=== PATIENT | female | born 1965 | race African-American/Black ===

== ENCOUNTER 2020-05-16 16:56 | Emergency (ER) | payer OTHER ==
[~2020-05-16] VITALS: Ht 172.7 cm; Wt 124.5 kg
[~2020-05-16 16:56] MED LIST: TYLETAB14 PO
--- OUTSIDE RECORDS SUMMARY | 2020-05-16 17:01 | CCD ---
Author Author [facility] Organization [facility] Address Unknown Phone Unavailable Support Name Relationship Address Phone [facility] Next Of Kin [phone] [place] [address] [facility] Next Of Kin [phone] [place] [address] LEOBARDO HERNANDO NASSAR Next Of Kin [address] [place] [address] FLIPHERNANDO HOYOS Next Of Kin Unknown Re-disclosure Warning The records that you are about to access may contain information from federally-assisted alcohol or drug abuse programs. If such information is present, then the following federally mandated warning applies: This information has been disclosed to you from records protected by federal confidentiality rules (42 CFR part 2). The federal rules prohibit you from making any further disclosure of this information unless further disclosure is expressly permitted by the written consent of the person to whom it pertains or as otherwise permitted by 42 CFR part 2. A general authorization for the release of medical or other information is NOT sufficient for this purpose. The Federal rules restrict any use of the information to criminally investigate or prosecute any alcohol or drug abuse patient.The records that you are about to access may contain highly sensitive health information, the redisclosure of which is protected by Article 27-F of the [facility] Public Health law. If you continue you may have access to information: Regarding HIV / AIDS; Provided by facilities licensed or operated by the [facility] Office of Mental Health; or Provided by the [facility] Office for People With Developmental Disabilities. If such information is present, then the following [facility] mandated warning applies: This information has been disclosed to you from confidential records which are protected by state law. State law prohibits you from making any further disclosure of this information without the specific written consent of the person to whom it pertains, or as otherwise permitted by law. Any unauthorized further disclosure in violation of state law may result in a fine or long-term sentence or both. A general authorization for the release of medical or other information is NOT sufficient authorization for further disc losure. Family History Family Member Name Family Member Gender Family Member Status Date o f Status Description Data Source(s) Unknown Unknown Problem [facility] ([facility]) Insurance Providers Payer name Policy type / Coverage type Policy ID Covered green party ID Covered green party's relationship to cabrales Policy Cabrales Plan Information [facility] [id number] [facility] [id number] [place] [id number] Self [id number] [facility] [id number] [facility] [id number] N REGIONAL CLAIMS SOHA-O/P [id number] 01 [id number] Results ID Date Data Source [id number] 02/02/2020 12:00:00 AM EST [facility] Name Value Range Interpretation Code Description Data Amberly rce(s) Supporting Document(s) SARS coronavirus 2 RNA [Presence] in Res piratory specimen by YANCY with probe detection [facility] This lab was ordered by Estuardo Boone and reported by [facility]. Procedure
--- NOTE | 2020-05-16 18:04 | REP ---
INDICATION: CHEST PAIN. COMPARISON: None. TECHNIQUE: AP portable upright chest FINDINGS: Lungs are well inflated. CP angle sharply defined without effusion. No lateral pleural thickening, apical scarring or pneumothorax. I see no infiltrate or atelectasis. The heart, mediastinal and hilar contours are normal for portable technique. The aorta and airway intact. Bones grossly intact. No free air under the diaphragm. IMPRESSION: No acute cardiopulmonary change. <Electronically signed by Erwin Sandra > 05/16/20 1800
[2020-05-16 18:19] LABS: BASO % 0.6 % (0.0-1.0); EOS # 1.1 10^3/uL (0.0-0.5); EOS % 16.2 % (0.0-3.0); HEMATOCRIT 38.9 % (36.0-47.0); HEMOGLOBIN 12.4 g/dl (12.0-15.5); LYMPH # 2.3 10^3/uL (1.5-5.0); LYMPH % 34.1 % (24.0-44.0); MEAN CORPUSCULAR HEMOGLOBIN 28.8 pg (27.0-33.0); MEAN CORPUSCULAR HGB CONC 31.9 g/dl (32.0-36.5); MEAN CORPUSCULAR VOLUME 90.5 fl (80.0-96.0); MONO # 0.5 10^3/uL (0.0-0.8); MONO % 7.9 % (2.0-8.0); NEUTROPHILS # 2.8 10^3/uL (1.5-8.5); NEUTROPHILS % 40.9 % (36.0-66.0); PLATELET COUNT, AUTOMATED 258 10^3/uL (150-450); WHITE BLOOD COUNT 6.9 10^3/uL (4.0-10.0)
[2020-05-16 18:31] LABS: BLOOD UREA NITROGEN 22 MG/DL (7-18); CARBON DIOXIDE LEVEL 29 MEQ/L (21-32); CHLORIDE LEVEL 108 MEQ/L (98-107); CK-MB VALUE MASS 1.9 NG/ML (<3.6); CPK CREATINE PHOSPHOKINASE 190 U/L (26-192); CREATININE FOR GFR 1.26 MG/DL (0.55-1.30); GLOMERULAR FILTRATION RATE 57.1 (>51); GLUCOSE, FASTING 77 MG/DL (70-100); POTASSIUM SERUM 4.2 MEQ/L (3.5-5.1); SODIUM LEVEL 143 MEQ/L (136-145); TROPONIN I < 0.02 NG/ML (< 0.10)
[2020-05-16] MEDS ORDERED: NAPR-837 PO (18:55)
[2020-05-16 19:00] VITALS: BP 142/85
--- OUTSIDE RECORDS SUMMARY | 2020-05-16 19:44 | CCD ---
Author Author [facility] Organization [facility] Address Unknown Phone Unavailable Support Name Relationship Address Phone [facility] Next Of Kin [address] [place] [address] KEL[place] [address] [facility] Next Of Kin [phone] [place] [address] [facility] Next Of Kin [phone] [place] [address] HERNANDO BOOTH JR Next Of Kin [address] [place] [address] HERNANDO BOOTH Next Of Kin Unknown Re-disclosure Warning The [...] is protected by Article 27-F of the [facility] Public Health law. If you continue you may have access to information: Regarding HIV / AIDS; Provided by facilities licensed or operated by the [facility] Office of Mental Health; or Provided by the [facility] Office for People With Developmental Disabilities. If such information is present, then the following [facility] mandated warning applies: This information [...] law may result in a fine or nursing home sentence or both. A general authorization for the release of medical or other information is NOT sufficient authorization for further disc losure. Family History Family Member Name Family Member Gender Family Member Status Date o f Status Description Data Source(s) Unknown Unknown Problem [facility] ([facility]) Insurance Providers Payer name Policy type / Coverage type Policy ID Covered republican ID Covered republican's relationship to cabrales Policy Cabrales Plan Information [facility] [employer] [id number] 2 [id number] [facility] [id number] 2 [id number] [place] [employer] [id number] Self [id number] [facility] [id number] 2 [id number] N REGIONAL CLAIMS SOHA-O/P [id number] 01 [id number] Results ID Date Data Source [id number] 02/02/2020 12:00:00 AM EST [facility] Name Value Range Interpretation Code Description Data Amberly rce(s) Supporting Document(s) SARS coronavirus 2 RNA [Presence] in Res piratory specimen by YANCY with probe detection [facility] This lab was ordered by Estuardo Boone and reported by [facility]. Procedure
--- NOTE | 2020-05-16 22:22 | ECGEPIP ---
[facility] - ED Test Date: 2020-05-16 Pat Name: CHAR BOOTH Department: Room: - Gender: Female Treasury Consultant: : 1965 Requested By: OG Farrell Order Number: [id number] Reading MD: Jose L Cardona Measurements Intervals [place] Rate: 74 P: 25 MT: 128 QRS: 7 QRSD: 76 T: -1 QT: 400 QTc: 444 Interpretive Statements Normal sinus rhythm with sinus arrhythmia POOR R WAVE PROGRESSION INCOMPLETE RIGHT BUNDLE BRANCH BLOCK NSTTW ABNORMALITY(S) BASELINE ARTIFACT AFFECTS INTERPRETATION NO PRIORS FOR COMPARISON Electronically Signed on 05-16-2020 22:21:48 EST by Jose L Cardona
== END 2020-05-16 19:15 | disposition home or self-care (01) ==
LOC: M ED 16:56
DX: R07.89 Other chest pain (principal); R94.31 Abnormal electrocardiogram [ECG] [EKG]